=== PATIENT | male | born 1995 | race African-American/Black ===

== ENCOUNTER 2024-07-19 19:44 | Emergency (ER) | payer BC, SELFPAY ==
[2024-07-19 19:48] VITALS: BP 131/96
--- NOTE | 2024-07-19 20:38 | ED.GENMED ---
History of Present Illness
General
Chief Complaint: Breathing Problem
Source: patient and family
Time Seen by Provider: 07/19/24 19:54
History of Present Illness
History of Present Illness:
28-year-old male with past medical history of asthma presenting the ER for evaluation of asthma exacerbation that has been going for about 2 weeks which patient believes is likely related to an upper respiratory infection that he started with tube
patient states he has been using his inhaler about every 4 hours, initially with relief but symptoms shortly returning. Patient states he endorses wheezing, coughing and shortness of breath. He made an appointment with his asthma specialist but
this is not for another few weeks. Patient notes no current fevers, chills, rigors or any other concerns. Patient last used his inhaler about 15 minutes prior to arrival to the ER.
Past History
Past History
ED Past Medical History: Asthma
ED Past Surgical History: None
Social History
Tobacco: Non-smoker
Alcohol: None
Drug: None
Personal: Other (fiance)
Living: with family
Employment: Employed
Review of Systems
Review of Systems
All Other Systems: ROS reviewed and negative except as documented in HPI and ROS
Phy Exam
Physical Exam
Physical Exam:
GENERAL: Alert , in no apparent distress
EYE: conjunctiva clear
NECK: Supple
ENT: mmm.
CARDIAC: Regular rate and rhythm
LUNGS: diffuse wheezing, no tachypnea or accessory muscle use
NEUROLOGICAL: Alert and oriented
SKIN: Warm and dry, skin intact.
MUSCULOSKELETAL: well perfused.
PSYCH: Normal and appropriate interaction.
Scores
Heart Failure Risk
Heart Failure Risk Score: Not Applicable
Heart Score for Chest Pain Patients
STEMI patient?: Not applicable
Withdrawal Assessment of Alcohol
Withdrawal Assessment Completed?: Not applicable
Course
Orders/Labs/Results
Orders:
Orders
07/19/24 19:55
Hydrocortisone Sod Succinate [Solu-Cortef] 100 mg .ROUTE .STK-MED ONE
Ipratropium/Albuterol Sulfate [Duoneb] 3 ml .ROUTE .STK-MED ONE
07/19/24 21:17
Ipratropium/Albuterol Sulfate [Duoneb] 3 ml .ROUTE .STK-MED ONE
Ipratropium/Albuterol Sulfate [Duoneb] 3 ml INH R NOW ONE
Vital Signs
Initial and Last Documented VS:
Initial Vital Signs
Temp Pulse Resp BP Pulse Ox
97.7 F 98 18 131/96 97
07/19/24 19:48 07/19/24 19:48 07/19/24 19:48 07/19/24 19:48 07/19/24 19:48
Last Documented Vital Signs
Temp Pulse Resp BP Pulse Ox
97.7 F 95 14 130/88 97
07/19/24 19:48 07/19/24 21:28 07/19/24 21:28 07/19/24 21:28 07/19/24 21:28
MDM/Problems Addressed
Differential Diagnosis Includes:
asthma, pneumonia, URI
MDM/Problems Addressed:
28-year-old male presenting to the ER for evaluation of asthma exacerbation likely triggered by recent viral URI 2 weeks ago. Using his inhaler every 4 hours the last few days. Used inhaler approximately 15 minutes prior to arrival and still with
wheezing. Will treat with DuoNeb and 100 mg Solu-Cortef. Reassessment following.
Chronic conditions affecting care: Asthma
Acute Exacerbation and/or Progression of Chronic Illness: Asthma
*Pulse Oximetry
Patient hypoxic: no
*Critical Care Note
Total Time (30-74mins, 75-104mins- exclusive of procedures): Not Applicable
Comment
Comment:
8:30 PM: Patient with full resolution of symptoms. Lungs clear to auscultation. Will continue to monitor. Reassess following
9:15 PM: Patient continues to feel better but now with very faint wheezing on repeat lung exam. Additional DuoNeb ordered.
9:40 PM: Patient states he would like to be discharged home. Wheezing resolved. Prescription for albuterol and prednisone sent to pharmacy. Patient given a nebulizer machine to use at home as needed. Will follow-up with primary care provider and
asthma specialist as he has scheduled.
ED Attending Note
-
Portions of this chart may have been created with voice recognition software.� Occasional wrong word or��sound alike� substitutions may have occurred due to the inherent limitations of voice recognition software.
Discharge Plan
Departure
Patient Disposition: Home (Routine Discharge)
Date of Disposition: 07/19/24
Time of Disposition: 21:41
Patient with high blood pressure during this ER visit?: No
Discharge Problem:
Asthma with acute exacerbation
Instructions: Asthma, Adult (DC)
Prescriptions:
New
prednisone 10 mg Tablet
10 mg PO DIRECTED Qty: 21 0RF
Rx Instructions:
Take 6 tabs day 1, 5 tabs day 2, 4 tabs day 3, 3 tabs day 4, 2 tabs day 5, 1 tab day 6
albuterol sulfate 2.5 mg /3 mL (0.083 %) solution for nebulization
2.5 mg inhalation QID PRN (Reason: shortness of breath or wheezing) Qty: 180 0RF
Referrals:
Diana Cotto CRNP [Family Provider] -
Interventions
Interventions:
*Risk Screen - Suicide Last Done: 07/19/24 19:46
*General Assessment Last Done: 07/19/24 19:50
*Neglect/Abuse Screening Last Done: 07/19/24 19:50
ED- Fall Risk Assessment Last Done: 07/19/24 20:00
*Nursing Disposition Last Done: 07/19/24 21:46
ED- Cardiac Assessment Last Done: 07/19/24 20:00
ED- Pulmonary Assessment Last Done: 07/19/24 20:00
Discharge Date and Time
Discharge Date/Time: 07/19/24 21:47
Print Language: [place] LUCIAN
[2024-07-19] MEDS: DUONEB 3 ML INH (21:18)
[2024-07-19 21:28] VITALS: BP 130/88
== END 2024-07-19 21:47 | disposition home or self-care (01) ==
LOC: EMR 19:44
PROVIDERS: EMERGENCY PHYSICIAN Student in an Organized Health Care Education/Training Program; FAMILY PHYSICIAN Nurse Practitioner
DX: J45.901 Unspecified asthma with (acute) exacerbation (principal)
CPT/HCPCS: 99283; 94640

== ENCOUNTER 2024-08-02 21:53 | Inpatient (IN) | payer BC, SELFPAY ==
[2024-08-02 19:47] VITALS: BP 177/98
[2024-08-02 19:49] VITALS: BMI 33.2
[2024-08-02 20:00] VITALS: BP 133/101
[2024-08-02] MEDS: MAGNESIUM SULFATE 50 IV (20:02)
[2024-08-02] MEDS: DUONEB 3 ML INH (20:02)
[2024-08-02] MEDS: SOLU-MEDROL PF 125 MG IV (20:03)
--- NOTE | 2024-08-02 20:04 | ED.GENMED ---
History of Present Illness
General
Chief Complaint: Breathing Problem
Source: patient and records
Exam Limitations: none
Time Seen by Provider: 08/02/24 19:50
Nursing documentation reviewed up to this point in time: agreed with
History of Present Illness
History of Present Illness:
28-year-old male with a past medical history of asthma who presents to the emergency department for evaluation of cough and shortness of breath, wheezing consistent with his asthma symptoms. Patient reports that this liberty his asthma symptoms have
been acting up much more so than usual. He says that he was here 2 weeks ago for cough and wheezing and was treated for asthma exacerbation with prednisone and nebulizer treatments. He finished his course of prednisone and was using nebulizer
treatments and felt a bit better. He says over the past few days symptoms began to flareup once again. He reports frequent coughing, increasing wheezing and today significant shortness of breath. He reports tightness in his chest. He has been
using his albuterol nebulizers at home and today even took a dose of prednisone 10 mg that he had leftover from an old prescription but this did not help and so he came to the ER to be evaluated. He does not take any long-acting medications for his
asthma as of now.
Past History
Past History
ED Past Medical History: Asthma
ED Past Surgical History: None
Social History
Tobacco: Non-smoker
Alcohol: None
Drug: None
Personal: Other (fiance)
Living: with family
Employment: Employed
Review of Systems
Review of Systems
All Other Systems: ROS reviewed and negative except as documented in HPI and ROS
Constitutional: Denies fever or chills
Respiratory: Reports cough and trouble breathing
Cardiac: Reports chest pain (Chest tightness); Denies palpitations
ABD/GI: Denies abdominal pain, nausea or vomiting
: Denies flank pain
Musculoskeletal: Denies neck pain or back pain
Neurological: Denies dizzy or headache
Phy Exam
Physical Exam
Physical Exam:
General: Awake, alert, oriented x3; sitting upright in bed with mild tachypnea
Head: Normocephalic, atraumatic
Eyes: Conjunctiva normal
Throat: Airway intact, handling secretions
Neck: Trachea midline, supple without meningismus
Lungs: Sitting upright, mild tachypnea but no increased work of breathing, speaking in full sentences, normal pulse ox on room air; he has diminished air movement and expiratory wheezing with prolonged expiratory phase throughout all lung greene
Heart: Tachycardia with regular rhythm, no murmurs, gallops, or rubs
Neuro: No gross deficits
Skin: no rash
Extremities: No edema in extremities, equal pulses in all extremities
Scores
Heart Failure Risk
Heart Failure Risk Score: Not Applicable
Heart Score for Chest Pain Patients
STEMI patient?: Not applicable
Withdrawal Assessment of Alcohol
Withdrawal Assessment Completed?: Not applicable
Course
Orders/Labs/Results
Orders:
Orders
08/02/24 19:46
EKG [Electrocardiogram (*1)] Urgent
Reason for Study: Shortness of Breath
EKG- Treatment ONCE
08/02/24 19:59
Ipratropium/Albuterol Sulfate [Duoneb] 3 ml INH R NOW STA
Magnesium Sulfate 2 Gram/50 ml [Magnesium Sulfate] 2 gram in 50 ml IV NOW
MethylPREDNISolone PF [Solu-Medrol Pf] 125 mg IV NOW STA
08/02/24 20:03
CR Chest Portable - 1 View Urgent
Comment:
Reason For Exam: sob,cough
Reason Study Needs to be Portable: Unable to Transport
08/02/24 20:09
COVID-19 Antigen Urgent
Source: Nasal Swab
Complete Blood Count/With Diff Urgent
Comprehensive Metabolic Panel Urgent
Influenza A+B Rapid Molecular Urgent
RODGER Source: Nasal Swab
Specimen Description:
08/02/24 20:59
Ipratropium/Albuterol Sulfate [Duoneb] 3 ml INH R NOW STA
08/02/24 21:01
Albuterol Nebs [Ventolin Nebules] 2.5 mg INH R NOW STA
Abnormal Lab Results
08/02/24
20:09
Glucose 101 H mg/dl
(70-99)
Total Protein 8.3 H g/dl
(6.3-8.2)
Albumin 5.1 H g/dl
(3.5-5.0)
08/02/24 20:09
08/02/24 20:09
Vital Signs
Resp Rate: 24
Initial and Last Documented VS:
Initial Vital Signs
Temp Pulse Resp BP Pulse Ox
37.2 C 129 16 177/98 96
08/02/24 19:47 08/02/24 19:47 08/02/24 19:47 08/02/24 19:47 08/02/24 19:47
Last Documented Vital Signs
Temp Pulse Resp BP Pulse Ox
37.2 C 129 24 177/98 97
08/02/24 19:47 08/02/24 19:47 08/02/24 21:02 08/02/24 19:47 08/02/24 19:51
MDM/Problems Addressed
Differential Diagnosis Includes:
Asthma exacerbation, bronchitis, pneumothorax, pneumonia
MDM/Problems Addressed:
28-year-old male with history of asthma presents for evaluation of cough, shortness of breath, wheezing consistent with prior exacerbations. Hypertensive and tachycardic on arrival here. Physical exam as above. Plan to place an IV send labs
including a CBC and a CMP. Will check chest x-ray and EKG. He already received 2 DuoNebs from EMS. Will initiate treatment with IV methylprednisolone, DuoNeb treatment, IV magnesium. Monitor very closely here and reassess after the above.
Clinical picture most consistent with acute active exacerbation.
Labs reviewed: CBC and CMP unremarkable. COVID-negative. Chest x-ray reviewed by me shows no acute disease clinical reassessment after steroids, magnesium, DuoNeb patient has had subjective improvement. He is moving better air but still has
significant bilateral wheezing. Will repeat albuterol. With continued significant wheezing and tachypnea despite steroids and 3 DuoNebs and now second visit with asthma symptoms in short span we will admit for continued management of acute asthma
exacerbation. Case discussed with hospitalist.
Chronic conditions affecting care:
Asthma
Acute Exacerbation and/or Progression of Chronic Illness:
Acutely hypertensive likely related to respiratory symptoms�will manage respiratory status and reassess
Acute Exacerbation and/or Progression of Chronic Illness: HTN
*Radiology
Radiology exam reviewed: radiology read reviewed
*Pulse Oximetry
Patient hypoxic: no
*EKG
Interpreted by ED Provider?: Yes
Heart Rate: 121
Rate: tachycardiac
Rhythm: sinus
[place]: normal axis
Interval: normal interval
QRS Pattern: normal QRS
Ischemia: non-specific ST changes
*Critical Care Note
Total Time (30-74mins, 75-104mins- exclusive of procedures): Not Applicable
Data Reviewed
Source: patient, records and ambulance crew
Patient Management
Discussion with other providers: Hospitalist (Discussed with hospitalist)
Escalation/DeEscalation of care consider admission/obs:
Admission indicated
ED Attending Note
-
Portions of this chart may have been created with voice recognition software.� Occasional wrong word or��sound alike� substitutions may have occurred due to the inherent limitations of voice recognition software.
Discharge Plan
Departure
Patient Disposition: Admit
Date of Disposition: 08/02/24
Time of Disposition: 21:03
Admit to doctor: Bobby
Presentation/result/management discussed w/ accepting MD/DO: Hospitalist
Discharge Problem:
Acute asthma exacerbation
Prescriptions:
No Action
prednisone 10 mg Tablet
10 mg PO DIRECTED Qty: 21 0RF
Rx Instructions:
Take 6 tabs day 1, 5 tabs day 2, 4 tabs day 3, 3 tabs day 4, 2 tabs day 5, 1 tab day 6
albuterol sulfate 2.5 mg /3 mL (0.083 %) solution for nebulization
2.5 mg inhalation QID PRN (Reason: shortness of breath or wheezing) Qty: 180 0RF
Interventions
Interventions:
*Risk Screen - Suicide Last Done: 08/02/24 19:50
*General Assessment Last Done: 08/02/24 19:50
*Neglect/Abuse Screening Last Done: 08/02/24 19:50
*ED COVID-19 Vaccine History Last Done: 08/02/24 19:50
ED- Cardiac Assessment Last Done: 08/02/24 19:51
ED- Pulmonary Assessment Last Done: 08/02/24 19:51
Discharge Date and Time
Print Language: GERMAN
[2024-08-02 20:25] LABS: % Basophils 0.4 % (0-2); % Eosinophils 3.9 % (0-6); % Immature Granulocytes 0.2 % (0-0.5); % Lymphocytes 32.8 % (20.5-51.1); % Monocytes 7.2 % (1.7-9.3); % Neutrophils 55.5 % (42.2-75.2); Absolute Eosinophils 0.4 10^3/uL (0-0.7); Absolute Lymphocytes 2.9 10^3/uL (1.2-3.4); Absolute Monocytes 0.6 10^3/uL (0.1-0.6); Absolute Neutrophils 4.9 10^3/uL (1.4-6.5); Hematocrit 42.7 % (39.0-52.0); Mean Corp Hgb Conc. 35.1 g/dL (33.0-37.0); Mean Corpuscular Hgb 28.2 pg (27.0-31.0); Mean Corpuscular Volume 80.4 fL (80.0-94.0); Mean Platelet Volume 9.9 fL (7.4-10.4); Nucleated Red Blood Cells % 0 % (-); Platelet Count 215 10^3/uL (130-400); Red Blood Cell Count 5.31 10^6/uL (4.70-6.10); Red Cell Dist. Width 13.2 % (11.5-14.5); White Blood Cell Count 8.9 10^3/uL (4.8-10.8)
[2024-08-02 20:39] LABS: ALT (SGPT) 38 U/L (0-50); AST (SGOT) 32 U/L (17-59); Albumin 5.1 g/dl (3.5-5.0); Alkaline Phosphatase 70 U/L (38-126); Blood Urea Nitrogen 19 mg/dl (9-20); Calcium 9.7 mg/dl (8.4-10.2); Carbon Dioxide 26 mmol/L (22-30); Chloride 104 mmol/L (98-107); Estimated Creatinine Clearance > 125 ml/min; Glucose 101 mg/dl (70-99); Potassium 4.2 mmol/L (3.5-5.1); Sodium 145 mmol/L (135-145); Total Bilirubin 0.4 mg/dl (0.2-1.3); Total Protein 8.3 g/dl (6.3-8.2); eGFR > 60.00
[2024-08-02 20:40] LABS: COVID-19 Antigen Negative (Negative)
[2024-08-02 21:00] VITALS: BP 141/86
[2024-08-02] MEDS: VENTOLIN NEBULES 2.5 MG INH (21:08)
--- NOTE | 2024-08-02 21:24 | HPS.HSE ---
Family Physician
-
Family Physician:
Chief Complaint
-
SOB
History of Present Illness
Patient is a 28y M with PMH significant for mild intermittent asthma who presents to ED complaining of SOB and wheezing. Patient states that symptoms initially started about 2 weeks ago. At that time, he and his fiancee were both ill with
respiratory symptoms. Patient presented here to the ED and was treated with nebs and steroids and discharged with PO prednisone taper. He took his last dose of that regimen today. Over the past 3 days or so he has noted his dyspnea and wheezing
returning. No fever / cough. This evening he was significantly short of breath - despite usual rescue inhalers - and returned to the ED for further evaluation.
Patient is on no maintenance / controller medications for his asthma.
He states that he has appreciated increased symptoms in general over the past 6 months or so, and has been using his rescue albuterol inhaler more frequently.
Medical History
Past Medical History
Past Medical History: Reports Other
Additional Past Medical History:
Asthma
Past Surgical History: Reports None
Social History
Tobacco: Non-smoker
Alcohol: None
Drug: None
Family History
Family History: Not pertinent
Allergies / Home Medications
Allergies reflects when Allergies were last updated in [facility].
Home Medications with original date entered in [facility]
Allergy/Medication List:
Allergies
Allergy/AdvReac Type Severity Reaction Status Date / Time
No Known Allergies Allergy Verified 08/02/24 19:47
Home Medications
albuterol sulfate 90 mcg/actuation aerosol inhaler 2 puff inhalation R Q4HPRN PRN sob/wheezing 08/02/24
Review of Systems
-
History Source: Patient
A 12 point ROS was completed and negative except as noted: Yes
Constitutional: Reports Fatigue; Denies Fever or Chills
EENT: Denies Sore Throat
Respiratory: Reports Trouble Breathing; Denies Cough
Cardiac: Denies Chest Pain or Palpitations
Abdomen/GI: Denies Abdominal Pain, Nausea, Vomiting or Diarrhea
: Denies Dysuria or Frequency
Neurological: Denies Dizzy or Headache
Physical Exam
Vital Signs
Vital Signs
Temp Pulse Resp BP Pulse Ox
98.9 F 106 24 141/86 93
08/02/24 19:47 08/02/24 21:00 08/02/24 21:02 08/02/24 21:00 08/02/24 21:00
Physical Exam
General: Other (28y M in no acute distress.)
HEENT: Moist mucous membranes and PERRLA
Respiratory: Other (Diffuse inspiratory and expiratory wheezes. No rales / rhonchi.)
Cardiac: S1/S2 and Tachycardia; No Murmur
GI: Soft, Non Tender, Non Distended and Normal Bowel Sounds
Musculoskeletal: No Clubbing, No Cyanosis and No Edema
Neuro: AO x 3
Laboratory Results
-
08/02/24 20:09
08/02/24 20:09
Laboratory Results
Total Bilirubin 0.4 mg/dl (0.2-1.3) 08/02/24 20:09
AST 32 U/L (17-59) 08/02/24 20:09
ALT 38 U/L (0-50) 08/02/24 20:09
Alkaline Phosphatase 70 U/L (38-126) 08/02/24 20:09
Impression/Plan
-
A/P: Patient is a28y M with PMH significant for asthma who presents to ED complaining of worsening SOB and wheezing.
Asthma with Acute Exacerbation
- Admit for further evaluation and treatment.
- IV steroids and taper / transition to PO as able.
- Nebs ATC and PRN.
- Will ask Pulmonary to evaluate patient during his stay.
- Prior history of 'mild intermittent' asthma; however, recent history / increased use of rescue inhaler would suggest at least moderate asthma / need for maintenance medication.
- Follow for clinical improvement.
DVT Prophylaxis: Lovenox
Code Status: Full
[2024-08-02 22:00] VITALS: BP 139/81
[2024-08-02 23:00] VITALS: BP 129/94
[2024-08-03] VITALS: BP 143/79
[2024-08-03 01:48] VITALS: BP 139/79
[2024-08-03 01:53] VITALS: BMI 32.3
--- NOTE | 2024-08-03 02:00 | PTCARENOTE ---
Addendum entered by Danilo Cervantes RN 08/03/24 02:41:
Inspiratory wheezing noted throughout and patient admits to feeling 'tight'. TT respiratory for PRN neb tx.
Original Note:
Patient arrived via stretcher accompanied by ED PCT. Patient ambulated self into room/bed without difficulty. Nursing assessment completed and as documented. L AC PIV in place, medication given - see MAR. Oriented to room/facility and use of call
quintana. Patient asking about relation between recently getting a dog and asthma symptoms, instructed to follow up with doctor tomorrow. Call quintana within reach, VSS, care ongoing.
[2024-08-03] MEDS: SOLU-MEDROL PF 60 MG IV (02:28)
[2024-08-03] MEDS: VENTOLIN NEBULES 2.5 MG INH (02:47)
[2024-08-03 04:23] VITALS: BP 130/70
[2024-08-03] MEDS: DUONEB 3 ML INH ×2 (07:08→11:08)
[2024-08-03 07:34] VITALS: BP 144/63
--- NOTE | 2024-08-03 08:34 | W.PN.HOSP.TC ---
Addendum entered and electronically signed by Richard Hirsch DO 08/03/24 13:06:
Patient stable for discharge. Discussed with pulmonary.
Outpatient follow-up.
Sinus tachycardia due to albuterol/Atrovent [id number]. Discontinued.
Discharge on Breo inhaler, albuterol as needed. Prednisone taper.
Ambulatory pulse ox on room air was normal.
Original Note:
Today's Communication/Plan
-
Stop IV steroids
Prednisone
Pulmonary consult
Ambulatory pulse ox on room air
Assessment / Plan
Assessment / Plan
Gen-AAOx3, NAD
HEENT-NC, AT, anicteric, clear oral mm
Neck-supple
CV-reg, no M, +S1/S2
Lungs-clear B/L
Abd-soft, NT, ND
Ext-no edema
Musculoskeletal-no cyanosis, clubbing
Skin-warm and dry
Neuro-grossly non-focal
Psych-calm, cooperative
Acute asthma exacerbation -suspect trigger was recent bronchitis 2 weeks ago. Still has mild lingering cough. Chest x-ray clear. Convert to prednisone. Continue inhalers. Anticipate discharging on controller medication. Currently only on
albuterol as needed at home.
Await pulmonary input.
Counseled on need to abstain from marijuana smoking as possible trigger as well.
Full code
Dispo - possible discharge later today if stable. Check amb pulse ox on RA. Follow-up with PCP and pulmonary.
Anticipated Discharge: Today
Subjective/Interval History
-
Date of Service: August 03, 2024
Patient seen and examined. Feels much better. No complaints.
Objective Data
-
Labs:
Laboratory Results
08/02/24
20:09
Sodium 145
Potassium 4.2
Chloride 104
Carbon Dioxide 26
BUN 19
Creatinine 1.0
Glucose 101 H
Calcium 9.7
Total Bilirubin 0.4
AST 32
ALT 38
Alkaline Phosphatase 70
Vital Signs:
Vital Signs
Temp Pulse Resp BP Pulse Ox
98.2 F 105 14 144/63 96
08/03/24 04:24 08/03/24 07:34 08/03/24 07:10 08/03/24 07:34 08/03/24 04:24
Review of Systems
-
History Source: Patient
All other systems: Reviewed and negative
[2024-08-03 08:35] VITALS: BMI 32.3
[2024-08-03] MEDS: DELTASONE 50 MG PO (09:08)
--- NOTE | 2024-08-03 10:46 | CON.PUL ---
Consultation
Consultation Request
Date/Time Consultation Requested: 08/03/2024
Date/Time Consultation Performed: 08/03/2024
Requesting Provider: Dr. Hirsch
Performing Provider: Dr. Cecilio Carrillo
Reason for Consultation: Acute asthma exacerbation
Medical History
-
History of Present Illness:
28-year-old man with history of childhood asthma, used to follow-up with a [facility]ridge farmer in [place] upon until few years ago. 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 Reports uncontrolled asthma for years. Including chronic cough,
exertional shortness of breath, sensitivity to weather changes, nocturnal symptoms, almost daily albuterol usage. This time for a few days symptoms got worse to the point that he was very short of breath. He was found to be bronchospastic in the
emergency room.
He does not have any controller medications.
He reports some frequent acid reflux for
Reports snoring but denies any gasping or choking episodes.
He has not had a prednisone taper in several years.
His weight has been stable.
Denies any eczema.
He has a dog.
Denies any occupational or other environmental exposures.
Past Medical History
Past Medical History: Asthma
Social History
Tobacco: Non-smoker
Alcohol: None
Drug: None
Personal: Single
Living: Other (With [facility])
Employment: Employed (Teacher)
Family History
Family History: Asthma (Brother)
Allergies / Home Medications
Allergies
Allergy/AdvReac Type Severity Reaction Status Date / Time
No Known Allergies Allergy Verified 08/02/24 19:47
Home Medications
�Medication �Instructions �Recorded �Confirmed �Last Taken �Type
prednisone 10 mg tablet 10 mg PO DIRECTED #21 tabs 07/19/24 08/02/24 Unknown Rx
albuterol sulfate 2.5 mg/3 mL 2.5 mg inhalation R QIDPRN PRN 08/02/24 08/02/24 Unknown History
(0.083 %) solution for nebulization shortness of breath or wheezing
albuterol sulfate 90 mcg/actuation 2 puff inhalation R Q4HPRN PRN 08/02/24 08/02/24 Unknown History
aerosol inhaler sob/wheezing
Review of Systems
-
History Source: Patient
All other systems: Negative unless noted
Vitals / Labs / Diagnostic Testing
Vital Signs
Temp Pulse Resp BP Pulse Ox
98.1 F 110 14 144/63 96
08/03/24 08:35 08/03/24 10:00 08/03/24 07:10 08/03/24 07:34 08/03/24 04:24
Lab Data
08/02/24 20:09
08/02/24 20:09
Microbiology
08/02/24 20:09 Nasal Swab Influenza Types A & B (ANDRES) - Final
Negative for Influenza A & B, NAAT
Negative results must be combined with clinical observations
and patient history.
Nucleic Acid Amplification test (NAAT)performed on the
Doppelganger platform.
Diagnostic Testing:
Physical Exam
-
HEENT: Normocephalic
Cardiovascular: S1/S2
Respiratory: Clear and Other (Good air movement)
GI: Soft and Non Distended
Neurology: Awake, AO x 3 and No Motor Deficits
General: Comfortable (Able to speak in full sentences)
Assessment
-
Acute asthma exacerbation
Poorly controlled asthma for few years-diagnosed as a child
Assessment and plan:
Acute asthma exacerbation
Chest x-ray reviewed clear.
Received IV corticosteroids and nebulizer [id number] since last night. Feels much better.
Lung exam clear to auscultation-good air movement.
Able to speak in full sentences
-
Discussed with patient pathophysiology of asthma and potential triggers including acid reflux, obstructive sleep apnea
Recommend outpatient pulmonary follow-up.
Recommend maintenance medication-ICS/LABA-Breo 200 mcg 1 puff daily until seen in the office.
Prednisone taper 40 mg X 3 days, 30 mg X 3 days, 20 mg X 3 days and 10 mg X 3 days.
Okay to continue albuterol HFA as needed.
-
Further evaluation and recommendations will depend on response to maintenance medication.
He understands importance to follow-up and obtain at least on a spirometry to rule out fixed airflow obstruction.
-
Discussed with his mother as well as megan� who were at the bedside.
Okay to discharge from my perspective.
Discussed with primary team.
-
My information was left on the chart to schedule a follow-up within 2 weeks.
[2024-08-03 11:43] VITALS: BP 149/77
--- NOTE | 2024-08-03 12:46 | CM ---
CM following for DC planning needs.
Met w/ patient, eliere and other family member @ bedside to complete initial assessment.
Pt. resides in a private home w/ sig. other. He is functionally indep. w/ ADLs, mobility. Pt. has a Nebulizer in the home; no other DME.
Pt. has Rx plan and uses [facility] on [address] for prescription needs.
Plan for DC to home, no needs.
Will follow.
--- NOTE | 2024-08-03 13:09 | W.DS.TRANS ---
DC Summary - Trimmer Tailer
-
Discharge Instructions:
Discharge Diagnosis/Procedures Asthma exacerbation
Diet Regular
Activity As tolerated
Driving Restrictions As prior to admission
Bathing Restrictions None
Instructions:
Stand-Alone Forms:
Changes to Home Medications: No
Discharge Medications:
DC Medications w/original date entered in [employer]
albuterol sulfate 2.5 mg/3 mL (0.083 %) solution for nebulization 2.5 mg inhalation R QIDPRN PRN shortness of breath or wheezing 08/02/24
albuterol sulfate 90 mcg/actuation aerosol inhaler 2 puff inhalation R Q4HPRN PRN sob/wheezing 08/02/24
fluticasone furoate 200 mcg-vilanterol 25 mcg/dose inhalation powder (Breo Ellipta) 1 inh inhalation DAILY #60 ea 08/03/24
prednisone 10 mg tablet 10 mg PO DIRECTED #30 tabs 08/03/24
Home Medication Changes
Pending Results: No
--- NOTE | 2024-08-03 13:59 | PTCARENOTE ---
D/C instructions given to patient and mother both verbalizes understanding. INT D/C'd, telemetry D/C'd, personal belongings packed and sent home with patient. D/C to home via wc accompanied by vol. services.
== END 2024-08-03 14:15 | disposition home or self-care (01) | DRG 203 ==
LOC: IVU 21:53
PROVIDERS: ADMITTING PHYSICIAN Hospitalist; ATTENDING PHYSICIAN Hospitalist; EMERGENCY PHYSICIAN Emergency Medicine; FAMILY PHYSICIAN Nurse Practitioner; OTHER PHYSICIAN Internal Medicine Critical Care Medicine
DX: J45.21 Mild intermittent asthma with (acute) exacerbation (principal); K21.9 Gastro-esophageal reflux disease without esophagitis; R06.83 Snoring; R00.0 Tachycardia, unspecified; F12.90 Cannabis use, unspecified, uncomplicated; Z82.5 Family history of asthma and other chronic lower respiratory diseases; Z79.51 Long term (current) use of inhaled steroids; Z87.09 Personal history of other diseases of the respiratory system
CPT/HCPCS: 71045; 80053; 85025; 87502; 87811; 93005; 94640; 96365; 96375; 99285